=== PATIENT | female | born 2000 | race Hispanic/Latino ===

== ENCOUNTER 2023-02-11 21:39 | Emergency (ER) | payer OTHER, SELFPAY ==
[2023-02-11 23:12] LABS: Bilirubin Neg (Negative); Blood, Urine 10 (Negative); Clarity Cloudy (Clear); Glucose, Urine (Dipstick) Normal (Negative); Ketone, Urine Negative (Negative); Leukocyte 500 (Negative); Nitrite Negative (Negative); Protein, Urine (Dipstick) 30 mg/dl (Neg-Trace); Specific Gravity, Urine 1.025 (1.005-1.030); Urobilinogen Normal mg/dL (Less than 2)
[2023-02-11 23:15] LABS: Pregnancy Test - Urine (BHCG) Negative (Negative); Pregu Control Background? CLEAR/WHITE (CLR/WHITE); Pregu Control Bar Appear? YES (CONTROL BAR); Specific Gravity 1.025 (1.002-1.036)
[2023-02-11 23:24] LABS: Bacteria/HPF 2+ HPF (None Seen); CAUTI Indications for Culture Pelvic or flank pain; RBC/HPF 0-3 HPF (0-3); WBC/HPF Greater Than 50 HPF (0-3)
[2023-02-11 23:25] LABS: Urine Culture Reflex Yes Yes
[2023-02-12 17:00] LABS: Chlamydia by PCR, Vaginal Swab DETECTED (NotDetected); GC by PCR, Vaginal Swab Not Detected (NotDetected)
== END 2023-02-12 00:48 | disposition home or self-care (01) ==
LOC: CSHERS 21:39
DX: N76.0 Acute vaginitis (principal)
CPT/HCPCS: 81001; 81025; 87077; 87086; 87480; 87491; 87510; 87591; 87660; 99283